=== PATIENT | male | born 1950 | race Caucasian/White ===

== ENCOUNTER → 2016-07-01 | Outpatient (CLI) | payer OTHER ==
[~2016-07-01] MED LIST: ACET-2723 PO; BUPIVACAINE 0.25% (2.5mg/ml) INJ 30ml SDV ONE; BUPIVACAINE 0.5% (5mg/ml) 30ml INJ SDV ONE; LIDOCAINE 1% (10mg/ml) 5ml VIAL ONE
--- NOTE | 2016-07-01 13:59 | DI ---
Indication:ITS.REASON: C79.51 BONE CA; C78.6 SECONDARY RETROPERITONEAL LYMPH NODES Procedure:CT BIOPSY BN,ILIUM,MASON.RIBSP Automated Exposure Control and Iterative Reconstruction dose reducing techniques were utilized. CT GUIDED BONE LESION BIOPSY/ASPIRATION: The procedure including the benefits, risks, and alternatives were explained in detail to the patient. All of his questions were answered. They stated that they understood and wished to proceed. Informed consent was obtained. A pre-procedural timeout was done to verify the correct patient and procedure. Using sterile technique, local Xylocaine and Marcaine anesthesia, and CT guidance, an 11-gauge bone biopsy needle is advanced from a posterior approach into the sclerotic lesion located in the posterior aspect of the left iliac bone. The first attempt at a core biopsy resulted in no bone sample. A second attempt provided an adequate bone core. The core was placed in formalin and sent to lab. The needle was removed. There was no complication. Hemostasis was obtained and a compression bandage was applied. Following this the patient was monitored in the CT department for 15 min. They then left the radiology department in good condition. Impression: Successful core biopsy of the sclerotic lesion located in the posterior aspect of the left iliac bone. Edilberto Bryan RPA/SANJAY performed this under my personal supervision. .
== END ==
LOC: IMA 12:29
PROVIDERS: ATTEND Internal Medicine Medical Oncology
DX: C79.51 Secondary malignant neoplasm of bone (principal); C78.6 Secondary malignant neoplasm of retroperitoneum and peritoneum
CPT/HCPCS: 20220

== ENCOUNTER 2016-07-06 07:00 | Day surgery (SDC) | payer OTHER ==
[~2016-07-06] VITALS: Ht 175.3 cm; Wt 92.7 kg
[~2016-07-06 07:00] MED LIST changes: -BUPIVACAINE 0.25% (2.5mg/ml) INJ 30ml SDV ONE; -BUPIVACAINE 0.5% (5mg/ml) 30ml INJ SDV ONE; +LIDOCAINE 1% (10mg/ml) 2ml SDV INJ ONE; -LIDOCAINE 1% (10mg/ml) 5ml VIAL ONE; +LR 1,000 ML IV SCH
--- OUTSIDE RECORDS SUMMARY | 2016-07-06 07:04 | XMS REPORT | Referral Summary ---
Author Author [facility], [facility] Organization [facility] Address Unknown Phone Unavailable Care Team Providers Care Table Cover Folder Name Role Phone Coy Murray Primary Care Physician [phone] Encounter Date(s): 06/02/16 - 06/02/16 [facility] [address] [place] [id number] Discharge Diagnosis: Thrombosed external hemorrhoid Discharge Diagnosis: Acute epididymitis Discharge Diagnosis: Alcohol abuse Discharge Disposition: 01-Home or Self Care Attending Physician: Heaven Blake APRN Admitting Physician: Heaven Blake APRN Vital Signs Most recent to 1 oldest [Reference Range]: Temperature Tympanic 36.6 degC [36.6-38.1 degC] (06/02/16 11:08 AM) Peripheral Pulse 84 bpm Rate [60-100 bpm] (06/02/16 11:08 AM) Blood Pressure 130/82 mmHg [90-140/60-90 mmHg] (06/02/16 11:08 AM) Problem List Condition Effective Dates Status Health Status Informant Bronchitis(Confirmed Active ) Irregular heart Active rhythm(Confirmed) Obesity(Confirmed) Active patient Osteoarthritis(Confi Active rmed) Allergies, Adverse Reactions, Alerts No Known Medication Allergies Medications Cipro 500 mg oral tablet 500 mg 1 tabs, Oral, q12hr, X 10 days, # 20 tabs, 0 Refill(s), Pharmacy: [facility] #[id number], 1 tabs Oral q12hr,x10 days Start Date: 06/02/16 Stop Date: 06/12/16 Status: Ordered Tylenol Extra Strength 500 mg oral tablet 1,000 mg 2 tabs, Oral, q6hr, as needed for pain, 0 Refill(s) Start Date: 06/02/16 Status: Ordered Results Urinalysis Most recent to 1 oldest [Reference Range]: UA Color Yellow (06/02/16 11:15 AM) UA Appear Clear (06/02/16 11:15 AM) UA pH [5.0-8.0] 7.0 (06/02/16 11:15 AM) UA Leuk Est Negative [Negative] (06/02/16 11:15 AM) UA Nitrite Negative [Negative] (06/02/16 11:15 AM) UA Protein Negative [Negative] (06/02/16 11:15 AM) UA Glucose Negative [Negative] (06/02/16 11:15 AM) UA Ketones Negative [Negative] (06/02/16 11:15 AM) UA Urobilinogen 0.2 mg/dL [<=1.0 mg/dL] (06/02/16 11:15 AM) UA Bili [Negative] Negative (06/02/16 11:15 AM) UA Blood [Negative] Negative (06/02/16 11:15 AM) UA Spec Grav 1.020 [1.003-1.030] (06/02/16 11:15 AM) Type Cl Catch (06/02/16 11:15 AM) Immunizations Given and Recorded Vaccine Date Status Refusal Reason tetanus-diphth toxoids (Td) adult/adol 07/22/04 Recorded Procedures No data available for this section Social History Social History Type Response Smoking Status Never smoker Assessment and Plan Extracted from: Title: Office Visit Author: Heaven Blake APRN Date: 06/02/16 Note-epididymitis Assessment/Plan 1.Acute epididymitis Cipro 500 mg one by mouth twice a day 10 days. Ice pack as needed for comfort. If symptoms get worse or he spikes fever to notify the office. 2.Alcohol abuse Encourage him to continue to cut back on his alcohol use. Discussed health risk of alcohol abuse. 3.Thrombosed external hemorrhoid Continue use of Preparation H-like product 4 times a day pluswitch candelaria wipes. At this point I do not feel like this needs to be lanced as it is feeling better today. The does not improve may need to consider. Discussed the importance of avoiding constipation. Adding more fiber in the diet. Urinary frequency Urinalysis obtained and reviewed. Negative. Patient needs to schedule well male/get established appointment with Dr. Murray. At that time would recommend a prostate exam and discussion regarding PSA.
--- OUTSIDE RECORDS SUMMARY | 2016-07-06 07:04 | XMS REPORT | Continuity of Care Document ---
Author Author [facility] Organization [facility] Address Unknown Phone Unavailable Allergies Active Description Code Type Severity Reaction Onset Reported/Identified Relationship to Patient Clinical Status Yes No Known Medication Allergies NKMA N/A N/A 01/31/2014 Medications Problems Procedures Results Test Result Range Urinalysis with reflex microscopic - 06/02/16 11:15 Appearance Clear NA Bilirubin Negative NA Negative Blood Negative NA Negative Color Yellow NA Glucose, Urine Negative NA Negative Ketones Negative NA Negative Leukocyte Esterase Negative NA Negative Nitrites Negative NA Negative pH 7.0 NA 5.0-8.0 Protein Negative NA Negative Specific [place] 1.020 NA 1.003-1.030 UA Collection type Cl Catch NA Urobilinogen 0.2 mg/dL <=1.0 Encounters ACCT No. Visit Date/Time Discharge Status Pt. Type Provider Facility Loc./Unit Complaint [id number] 07/03/2013 11:15:00 07/03/2013 23 :59:59 CLS Outpatient
--- OUTSIDE RECORDS SUMMARY | 2016-07-06 07:04 | XMS REPORT | Referral Summary ---
Author Author [facility] Organization [facility] Address Unknown Phone Unavailable Care Team Providers Care Sex Therapist Name Role Phone Jermaine Sifuentes Primary Care Physician [phone] Encounter Date(s): 08/02/15 - 08/02/15 [facility], Family [address] [place] [id number] Discharge Diagnosis: Right carpal tunnel syndrome Discharge Diagnosis: Osteoarthritis of right hand Discharge Disposition: 01-Home or Self Care Attending Physician: Franco Murray MD Vital Signs Most recent to 1 oldest [Reference Range]: Temperature Tympanic 36.6 degC [36.6-38.1 degC] (08/02/15 3:19 PM) Peripheral Pulse 84 bpm Rate [60-100 bpm] (08/02/15 3:19 PM) Respiratory Rate 16 br/min [14-20 br/min] (08/02/15 3:19 PM) Blood Pressure 144/88 mmHg [90-140/60-90 mmHg] *HI* (08/02/15 3:19 PM) Problem List Condition Effective Dates Status Health Status Informant Bronchitis(Confirmed Active ) Irregular heart Active rhythm(Confirmed) Osteoarthritis(Confi Active rmed) Allergies, Adverse Reactions, Alerts No Known Medication Allergies Medications betamethasone dipropionate 0.05% topical cream 1 ruby, Topical, BID, 0 Refill(s) Start Date: 01/31/14 Status: Ordered meloxicam 15 mg oral tablet 15 mg 1 tabs, Oral, Daily, # 30 tabs, 0 Refill(s), Pharmacy: [id number], 1 tabs Oral Daily Start Date: 08/02/15 Status: Ordered [place]dwell 5 mg-325 mg oral tablet 1 tabs, Oral, q6hr, as needed for pain, # 30 tabs, 0 Refill(s) Start Date: 08/02/15 Status: Ordered permethrin 5% topical cream See Instructions, 1 RUBY TOPICAL ONCE,INSTR:TO SKIN HEAD TO FEET, REMOVE BY WASHING AFTER 8 TO 14 HOURS, # 60 g, eRx: [facility] [id number], 1 RUBY TOPICAL ONCE,INSTR:TO SKIN HEAD TO FEET, REMOVE BY WASHING AFTER 8 TO 14 HOURS Start Date: 02/02/14 Status: Ordered Results No data available for this section Immunizations Vaccine Date Refusal Reason tetanus-diphth toxoids (Td) adult/adol 07/22/04 Procedures No data available for this section Social History Social History Type Response Smoking Status Never smoker Assessment and Plan Extracted from: Title: Office Visit Note Author: Franco Murray MD Date: 08/02/15 Assessment/Plan Carpal tunnel syndrome, right upper limb, Right carpal tunnel syndrome Think his pain is a combination of both arthritis and an exacerbation of what sounds like some chronic carpal tunnel. I've recommended meloxicam 15 mg a dayhe should avoid Aleve or ibuprofen while taking this. He has a wrist splint and I've asked him to wear this anytime he's doing any heavier activity with the hand. Additionally I gave him some hydrocodone to use on a when necessary basis especially at nightwhen it's been keeping him up. If it doesn't seem to be calming down he'll let us know. Ultimately he may need some surgicaltreatment for his carpal tunnel. We talked about getting some nerve conduction studies and he'll let me know if her when he wants to have those done. If not improving he should follow-up. Ordered: Office Visit Level 3 Est 75037 Osteoarthritis of right hand, Primary osteoarthritis, right hand See above plan. Ordered: Office Visit Level 3 Est 97315 Orders: HYDROcodone-acetaminophen, 1 tabs, Oral, q6hr, as needed for pain, # 30 tabs, 0 Refill(s) meloxicam, 15 mg 1 tabs, Oral, Daily, # 30 tabs, 0 Refill(s), Pharmacy: [facility] [id number], 1 tabs Oral Daily
--- OUTSIDE RECORDS SUMMARY | 2016-07-06 07:04 | XMS REPORT | Referral Summary ---
Author Author [facility], Family [facility] Organization [facility] Address Unknown Phone Unavailable Care Team Providers Care Crane Follower Name Role Phone No PCP, States Primary Care Physician [phone] Encounter Date(s): 10/10/15 - 10/10/15 [facility] [address] [place] [id number] Discharge Diagnosis: Insect bite, venomous Discharge Disposition: 01-Home or Self Care Attending Physician: Brittany Canut DO Admitting Physician: Brittany Cantu DO Vital Signs Most recent to 1 oldest [Reference Range]: Temperature Tympanic 37.1 degC [36.6-38.1 degC] (10/10/15 10:01 AM) Peripheral Pulse 99 bpm Rate [60-100 bpm] (10/10/15 10:01 AM) Respiratory Rate 18 br/min [14-20 br/min] (10/10/15 10:01 AM) Blood Pressure 122/78 mmHg [90-140/60-90 mmHg] (10/10/15 10:01 AM) SpO2 96 % (10/10/15 10:01 AM) Problem List Condition Effective Dates Status Health Status Informant Bronchitis(Confirmed Active ) Irregular heart Active rhythm(Confirmed) Osteoarthritis(Confi Active rmed) Allergies, Adverse Reactions, Alerts No Known Medication Allergies Medications No Known Medications Results No data available for this section Immunizations Vaccine Date Refusal Reason tetanus-diphth toxoids (Td) adult/adol 07/22/04 Procedures No data available for this section Social History Social History Type Response Smoking Status Never smoker Assessment and Plan Extracted from: Title: DOC bite Author: Brittany Cantu DO Date: 10/10/15 Assessment/Plan Insect bite, venomous Discussed that he is likely having a reaction to the benefit from some type of spider or other insect bite. We discussed that we could do somelab work today but he declined this. We will give him a Medrol Dosepak. Advised him to watch for any signs of necrosis or infection and 2 percent to clinic or the emergency department with any of these. Ordered: Office Visit Level 3 Est 85685
--- OUTSIDE RECORDS SUMMARY | 2016-07-06 07:04 | XMS REPORT | Continuity of Care Document ---
Author Author Maria MCNAMARA, Brennen PAULINO Organization Ambulatory Address [address] [place] [address] Phone Care Team Providers Care Store Protection Specialist Name Role Phone Brennen Sifuentes PP Unavailable Payers Payer name Insurance type Covered republican ID Authorization(s) Unknown Problems Condition Effective Dates (start - stop) Clinical Status Osteoarthrosis, unspecified whether generalized or localized, involving unspecified site - *Chronic Subluxation of finger, acquired - *Chronic Essential tremor - *Chronic Family History Family Member Diagnosis Age At Onset Status Unknown Social History Social History Element Description Quantity Unknown Allergies, Adverse Reactions, Alerts Substance Reaction Severity Status Unknown Medications Medication Instructions Dosage Effective Dates (start - stop) Status ibuprofen 200 mg tablet take 1 Tablet (200MG) by oral route 2 times every day as needed with food 200 MG - Active Tylenol Ex Str Arthritis Pain 500 mg tablet take 2 tablet (1000MG) by oral route every 6 hours as needed 1000 MG - Active Voltaren 1 % topical gel Apply 4 grams QID to affected areas. - Active Immunizations Vaccine Date Status Comments Unknown Results Test Name Date and Time Measure Units Reference Range Abnormal Flag Comments Unknown Vital Signs Date / Time: Height Weight Pulse Rate Blood Pressure Temperature /11:19:00 68.50 in 209.50 lbs 74 /min 124/88 mm[Hg] 97.7 F Procedures Procedure Date Unknown Encounters Encounter Location Date Patient Visit [facility] Patient Visit Conversion Advance Directives Directive Effective Date Unknown
[2016-07-06 07:15] VITALS: BP 158/91; PULSE 67; RESP 11; TEMP 97.5; O2SAT 98; Ht 175.3 cm; Wt 92.7 kg
--- NOTE | 2016-07-06 08:02 | ANESPREOP ---
Anesthesia Record Date and Time DATE: 07/06/16 TIME: 08:00 Proposed Surgical Procedure COLONOSCOPY Allergies: Coded Allergies: No Known Allergies (Unverified , 07/06/16) Ht/Wt/BMI Height: 5 ' 9.00 " Weight: 92.700 kg BMI: 30.2 kg/m2 Vital Signs Date Time Temp Pulse Resp B/P Pulse Ox O2 Delivery O2 Flow Rate FiO2 07/06/16 07:15 97.5 67 11 158/91 98 Room Air Medications Inpatient Medications Current Medications Medications (Trade) Dose Ordered Sig/Lucy Start Time Stop Time Status Last Admin Dose Admin Lactated Ringer's (Lactated Ringers) 1,000 ml @ 50 mls/hr Q20H 07/06/16 07:00 07/06/16 07:45 50 MLS/HR Acetaminophen (Tylenol Extra Strength) 500 Mg Tablet, 1-2 TAB PO Q6H PRN for PAIN/FEVER, (Reported) Last Taken: on 06/22/16 0000 Currently on Beta Radha: No Medical/Surgical History Anesthesia PMH: Reports: Arthritis (R. HAND, KNEES), Cardiac Arrythmia (heart arythmia in 90's, no problem since ), Denies: Anesthesia Reactions (NO KNOWN FAMILY HISTORY/PT HAS NOT HAD ANESTHESIA), Cancer (PROSTATE CANCER), Clotting Problems, Glaucoma, Malignant Hyperthermia, Renal Disease, Sleep Apnea Smoking Status: Never smoker Has pt. smoked today?: No Use Chewing Tobacco?: No Second Hand Exposure: No Alcohol Intake: daily Past Surgical History Orthopedic Surgeries: Abdominal Surgeries: Genitourinary Surgeries: Cardiac Surgeries: Endocrine Surgeries: Reproductive Surgeries: Neurological Surgeries: Ear Surgeries: Nose Surgeries: Throat Surgeries: Other Surgeries: Anesthesia Adverse Reactions: FOUND none Family Hx of Anesthesia Advers: none Pertinent Findings EKG Rhythm: Sinus Bradycardia Physical Exam Respiratory: Bilat breath sounds equal, Lungs clear Cardiovascular: FOUND Regular rate, rhythm, FOUND No murmur Airway Assessment Mallampati Score: II TMD: 3 Fingerbreadths Neck Extension: Fair Overall Assessment: No Airway Concerns ASA: 3 Plan Anesthesia Plan: TIVA Discussion Discussed risks/options/alternatives of anesthesia and questions answered. Patient consents. Nursing pain assessment noted. Attestation Statement Prior to the delivery of any anesthetic medication, I examined the patient, developed the plan, obtained the patient's consent and discussed the risk and benefits of the procedure with the patient/guardian. ALEX NATH CRNA Jul 06, 2016 08:02
[2016-07-06] MEDS ORDERED: PROPOFOL 500mg 50 ML IV ONE (08:18)
[2016-07-06] MEDS ORDERED: LIDOCAINE 2% (20mg/ml) 5ml PF SDV ONE (08:18)
[2016-07-06] MEDS ORDERED: FENTANYL 250mcg/5ml INJECTION ONE (08:20)
[2016-07-06 08:55] VITALS: BP 131/85; PULSE 83; RESP 12; TEMP 97.6; O2SAT 95
[2016-07-06 09:10] VITALS: BP 145/84; PULSE 60; RESP 11; O2SAT 99
--- NOTE | 2016-07-06 09:13 | GSPOSTPROC ---
Immediate Operative Note DATE: 07/06/16 TIME: 09:12 Postop Diagnosis: Colon polyps Surgical Procedure: C-scope w/Polypectomy Surgeon: Raghu ASA: 3 EMILIE HERNANDEZ MD Jul 06, 2016 09:13
[2016-07-06 09:25] VITALS: BP 175/88; PULSE 67; RESP 17; TEMP 96.9; O2SAT 100
--- NOTE | 2016-07-06 09:29 | ANESPO ---
Post-Op Note Date 07/06/16 Time: 09:05 Status Pt Participated in Evaluation: Pt participated in person Vital Signs Date Time Temp Pulse Resp B/P Pulse Ox O2 Delivery O2 Flow Rate FiO2 07/06/16 09:10 60 11 145/84 99 Room Air 07/06/16 08:55 97.6 Respiratory Function: Airway patent Cardiovascular Function: Regular pulse Mental Status: Alert/oriented Pain Level Intensity: 0 Hydration: IV infusing Complications during Recovery None apparent Follow-Up Instructions Instructions Per Surgeon ALEX NATH CRNA Jul 06, 2016 09:29
--- NOTE | 2016-07-08 11:46 | OPNOTEF ---
DATE OF OPERATION 07/06/2016 SURGEON Khalif Krishnamurthy MD PREOPERATIVE DIAGNOSIS Screening colonoscopy. POSTOPERATIVE DIAGNOSIS Screening colonoscopy. PROCEDURE Colonoscopy with hot snare polypectomy x2 and hot biopsy forceps polypectomy x3. ANESTHESIA TIVA ASA CLASS 3 INDICATIONS The patient is a 65-year-old male who has never had prior colonoscopy. Colonoscopy was recommended to him based on his age alone. FINDINGS There was a 1 cm polyp in the ascending colon and a 0.7 cm polyp in the sigmoid colon at 20 cm. There were three smaller sessile polyps that were less than 0.5 cm that were located in the descending colon at 40 cm, descending colon at 37 cm, and rectum. The colon was otherwise normal. DESCRIPTION OF PROCEDURE After informed consent was obtained the patient was taken to the endoscopy suite and placed in left lateral decubitus position. IV anesthesia was administered by the anesthesia team. A digital rectal exam was performed and did reveal some nodularity of the prostate, more on the right side. An Olympus video colonoscope with an AmplifEYE device was inserted and retroflexed to examine the distal rectum. No significant internal hemorrhoidal tissue was noted. The scope was returned to a neutral position. The patient had received a MiraLAX/Dulcolax bowel prep the day prior. His bowel prep was very good with minimal residual liquid contents in the colon that were able to be evacuated after irrigation. The scope was advanced to the sigmoid colon where a polyp was discovered. It was encircled with a polypectomy snare and the mucosa was tented. Cautery was applied to divide the base of the polyp. Attempts were made to remove the polyp via a suction trap but the polyp held on the end of the scope, so the scope was withdrawn and the polyp was sent to pathology. The scope was re-advanced to the level of the cecum without difficulty. Cecum was identified by the appendiceal orifice and ileocecal valve. The scope was slowly withdrawn examining the mucosa circumferentially. In the ascending colon , there was a larger polyp on a fold that was also encircled with the polypectomy snare. The mucosa was tented and the base of the polyp was divided using cautery. The polyp was successfully retrieved via a suction trap and was sent to pathology. Hot biopsy forceps were used to clean up some residual polyp at the edges of the resection until the entire polyp had been removed. The scope was further withdrawn to the descending colon at 40 cm. A small polyp was encountered. It was grasped with biopsy forceps and the mucosa was tented. Cautery was applied to destroy the base of the polyp. The polyp was then removed and was sent to pathology. Another small polyp was noted and was also removed with hot biopsy forceps at 37 cm. A final small polyp was noted in the rectum and was also removed with hot biopsy forceps polypectomy. The carbon dioxide insufflation was then evacuated and the scope was removed. The patient tolerated the procedure well. RECOMMENDATION Await pathology results to determine the time interval when repeat colonoscopy should be considered. Given his history of metastatic prostate cancer, a repeat may not be indicated once the future date of consideration has been reached. GITAD
== END 2016-07-06 09:33 | disposition home or self-care (01) ==
LOC: SCU 07:00
PROVIDERS: ATTEND Surgery
DX: Z12.11 Encounter for screening for malignant neoplasm of colon (principal); C18.7 Malignant neoplasm of sigmoid colon; D12.2 Benign neoplasm of ascending colon; D12.4 Benign neoplasm of descending colon; K62.1 Rectal polyp; K21.9 Gastro-esophageal reflux disease without esophagitis; K64.4 Residual hemorrhoidal skin tags; F10.20 Alcohol dependence, uncomplicated; Z79.899 Other long term (current) drug therapy
CPT/HCPCS: 45384; 45385; J3010; J7120

== ENCOUNTER → 2016-07-22 | Outpatient (CLI) | payer OTHER ==
[~2016-07-22] MED LIST changes: -LIDOCAINE 1% (10mg/ml) 2ml SDV INJ ONE; -LR 1,000 ML IV SCH
--- NOTE | 2016-07-22 10:41 | DI ---
Indication: ITS.REASON: C61 PROSTATE CA Procedure: CHEST, PA LATERAL: Encounter: Initial Comparison: None available Technique: PA and lateral radiographs of the chest were obtained. Findings: Lungs and airways: Normal lung volumes. No focal airspace consolidation. Normal pulmonary vasculature. Pleura: No pleural effusion or pneumothorax. Heart and mediastinum: The cardiomediastinal silhouette and great vessels are within normal limits. Osseous structures and soft tissues: No acute osseous abnormality is seen. Degenerative disc disease of the thoracic spine. Degenerative arthrosis of the AC joints. Impression: No acute cardiopulmonary process appreciated radiographically. .
== END ==
LOC: IMA 10:04
PROVIDERS: ATTEND Internal Medicine Medical Oncology
DX: C61 Malignant neoplasm of prostate (principal); M51.34 Other intervertebral disc degeneration, thoracic region